=== PATIENT | female | born 1965 | race American Indian/Alaskan Native ===

== ENCOUNTER 2019-05-17 16:06 | Emergency (ER) | payer SELFPAY ==
--- NOTE | 2019-05-17 17:07 | Event Note ---
ED Screening Note ED Screening Note: left knee pain that began a week ago states she has associated pain and swelling states it got more uncomfortable today never injured before no fall or injury no pmhx no allergies to meds This initial assessment/diagnostic orders/clinical plan/treatment(s) is/are subject to change based on patients health status, clinical progression and re- assessment by fellow clinical providers in the ED. Further treatment and workup at subsequent clinical providers discretion. Patient/guardian urged not to elope from the ED as their condition may be serious if not clinically assessed and managed. Initial orders include: XR left knee
--- NOTE | 2019-05-17 17:41 | XRay Report ---
LEFT KNEE 3 VIEWS INDICATION: left knee pain/edema. COMPARISON: No relevant prior imaging study available. FINDINGS: No acute, displaced fracture or dislocation is seen. However, there is a joint effusion. IMPRESSION: 1. No acute skeletal abnormality. Joint effusion is present. Signer Name: Osito Brock MD Signed: 05/17/2019 5:36 PM Workstation Name: [id number]
[2019-05-17] MEDS ORDERED: predniSONE 20 MG TAB PO ONE (20:10)
[2019-05-17] MEDS ORDERED: ACETAMINOPHEN W/CODEINE 300-30 MG TAB PO ONE (20:10)
[2019-05-17] MEDS ORDERED: IBUPROFEN 800 MG TAB PO ONE (20:10)
--- NOTE | 2019-05-17 21:15 | Emergency Department Report ---
ED Lower Extremity HPI - General Chief Complaint: Extremity Injury, Lower Stated Complaint: LFT KNEE PAIN Time Seen by Provider: 05/17/19 17:06 Source: patient Mode of arrival: Wheelchair Limitations: Physical Limitation - History of Present Illness Initial Comments: this is a 54 y/o aaf wtih hx of htnn who presents for left knee pain and swelling 1 week , denies fall injury or trauma. pain described as 4/10 aching and swelling. pt remains ambulatory with minimal gait distrubance.. rom is intact , there is no numbness tingling or weakness Complaint: knee injury Onset/Timin -: week(s) Injury: Knee: Left Type of Injury: unknown Place: home Severity: moderate Severity scale (0 -10): 5 Improves With: nothing Worsens With: weight bearing, movement, palpation Associated Symptoms: swelling, ambulatory. denies: numbness, tingling - Related Data Previous Rx's Medication Instructions Recorded Last Taken Type Acetaminophen/Codeine [Tylenol 1 tab PO Q6H PRN #12 tab 05/17/19 Unknown Rx /Codeine # 3 tab] Naproxen 500 mg PO BID PRN #30 tablet 05/17/19 Unknown Rx amLODIPine 10 mg PO DAILY #30 tab 05/17/19 Unknown Rx hydroCHLOROthiazide [HCTZ] 25 mg PO QDAY #30 tablet 05/17/19 Unknown Rx predniSONE [Deltasone] 40 mg PO QDAY 5 Days #10 tab 05/17/19 Unknown Rx Allergies Allergy/AdvReac Type Severity Reaction Status Date / Time lisinopril Allergy Swelling Verified 05/17/19 20:29 ED Review of Systems ROS: Stated complaint: LFT KNEE PAIN Other details as noted in HPI Constitutional: denies: chills, fever Eyes: denies: eye pain, eye discharge, vision change ENT: denies: ear pain, throat pain Respiratory: denies: cough, shortness of breath, wheezing Cardiovascular: denies: chest pain, palpitations Endocrine: no symptoms reported Gastrointestinal: denies: abdominal pain, nausea, diarrhea Genitourinary: denies: urgency, dysuria, discharge Musculoskeletal: joint swelling, arthralgia Skin: denies: rash, lesions Neurological: as per HPI Psychiatric: denies: anxiety, depression Hematological/Lymphatic: denies: easy bleeding, easy bruising ED Past Medical Hx - Past Medical History Previous Medical History?: No - Social History Smoking Status: Current Every Day Smoker Substance Use Type: None - Medications Home Medications: Home Medications Medication Instructions Recorded Confirmed Last Taken Type Acetaminophen/Codeine [Tylenol 1 tab PO Q6H PRN #12 tab 05/17/19 Unknown Rx /Codeine # 3 tab] Naproxen 500 mg PO BID PRN #30 tablet 05/17/19 Unknown Rx amLODIPine 10 mg PO DAILY #30 tab 05/17/19 Unknown Rx hydroCHLOROthiazide [HCTZ] 25 mg PO QDAY #30 tablet 05/17/19 Unknown Rx predniSONE [Deltasone] 40 mg PO QDAY 5 Days #10 tab 05/17/19 Unknown Rx ED Physical Exam - General Limitations: Physical Limitation General appearance: alert, in no apparent distress - Head Head exam: Present: atraumatic, normocephalic - Eye Eye exam: Present: normal appearance - ENT ENT exam: Present: mucous membranes moist - Neck Neck exam: Present: normal inspection - Respiratory Respiratory exam: Present: normal lung sounds bilaterally. Absent: respiratory distress, wheezes, stridor - Cardiovascular Cardiovascular Exam: Present: regular rate, normal rhythm, normal heart sounds. Absent: systolic murmur, diastolic murmur, rubs, gallop - GI/Abdominal GI/Abdominal exam: Present: soft, normal bowel sounds. Absent: distended, tenderness, bruit, hernia - Rectal Rectal exam: Present: deferred - Extremities Exam Extremities exam: Present: full ROM, tenderness (left anterior knee ), normal capillary refill, joint swelling - Expanded Lower Extremity Exam Left Knee exam: Present: full ROM, tenderness, swelling, pain w/ pronation/supination, full knee extension. Absent: abrasion, laceration, ecchymosis, deformity, crepidus, dislocation, erythema, effusion, posterior draw sign Lower Leg exam: Present: full ROM. Absent: tenderness, swelling Ankle exam: Present: full ROM. Absent: tenderness, swelling Foot/Toe exam: Present: full ROM. Absent: tenderness, swelling Neuro vascular tendon exam: Absent: pulse deficit, motor deficit, sensory deficit, tendon deficit Gait: Positive: observed and normal - Back Exam Back exam: Present: normal inspection, full ROM. Absent: tenderness, CVA tenderness (R), CVA tenderness (L), muscle spasm, paraspinal tenderness, rash noted - Neurological Exam Neurological exam: Present: alert, oriented X3, CN II-XII intact, reflexes normal. Absent: motor sensory deficit - Psychiatric Psychiatric exam: Present: normal affect, normal mood - Skin Skin exam: Present: warm, dry, intact, normal color. Absent: rash ED Course Vital Signs 05/17/19 05/17/19 16:11 18:52 Temperature 98.4 F 98.2 F Pulse Rate 85 72 Respiratory 19 19 Rate Blood Pressure 173/102 177/96 O2 Sat by Pulse 97 98 Oximetry ED Lower Extremity MDM - Radiology Data Radiology results: report reviewed, image reviewed Findings [facility] [address] [place] [address] XRay Report Signed Patient: MIS CROW MR#: [id number] : 1965 Acct:[id number] Age/Sex: 54 / F ADM Date: 05/17/19 Loc: ED Attending Dr: Ordering Physician: LAURA CARTAGENA Date of Service: 05/17/19 Procedure(s): XR knee 3V LT Accession Number(s): [id number] cc: LAURA CARTAGENA Fluoro Time In Minutes: LEFT KNEE 3 VIEWS INDICATION: left knee pain/edema. COMPARISON: No relevant prior imaging study available. FINDINGS: No acute, displaced fracture or dislocation is seen. However, there is a joint effusion. IMPRESSION: 1. No acute skeletal abnormality. Joint effusion is present. Signer Name: Osito Brock MD Signed: 05/17/2019 5:36 PM Workstation Name: [id number] Transcribed By: Dictated By: Osito Brock MD Electronically Authenticated By: Osito Brock MD Signed Date/Time: 05/17/191735 DD/ 35 TD/TT: - Medical Decision Making left knee xray: no fracture, pos for right knee joint effusion, there is no drawer no catch no pop, joint is stable , pt is ambulatory, plan: nsaid, steroids, analgesic balm, follow up withe ortho dr Dickinson in 2-3 days. Critical care attestation.: If time is entered above; I have spent that time in minutes in the direct care of this critically ill patient, excluding procedure time. ED Disposition Clinical Impression: Strain of left knee Qualifiers: Encounter type: initial encounter Qualified Code(s): S86.912A - Strain of unspecified muscle(s) and tendon(s) at lower leg level, left leg, initial encounter Arthralgia Qualifiers: Joint pain location: knee Laterality: left Qualified Code(s): M25.562 - Pain in left knee Disposition: TO HOME OR SELFCARE Is pt being admited?: No Does the pt Need Aspirin: No Condition: Stable Instructions: Knee Pain (ED), Arthralgia (ED), Knee Exercises (GEN), RICE The rapy (ED) Prescriptions: amLODIPine 10 mg PO DAILY #30 tab predniSONE [Deltasone] 40 mg PO QDAY 5 Days #10 tab hydroCHLOROthiazide [HCTZ] 25 mg PO QDAY #30 tablet Naproxen 500 mg PO BID PRN #30 tablet PRN Reason: pain Acetaminophen/Codeine [Tylenol /Codeine # 3 tab] 1 tab PO Q6H PRN #12 tab PRN Reason: severe pain Referrals: YASMIN DICKINSON MD [Staff Physician] - 3-5 Days Forms: Work/School Release Form(ED) Time of Disposition: 21:12
[2019-05-17 21:37] VITALS: BP 188/105
== END 2019-05-17 21:32 | disposition home or self-care (01) ==
LOC: ED 16:06
DX: S86.912A Strain of unspecified muscle(s) and tendon(s) at lower leg level, left leg, initial encounter (principal); F17.200 Nicotine dependence, unspecified, uncomplicated; Z88.8 Allergy status to other drugs, medicaments and biological substances; X58.XXXA Exposure to other specified factors, initial encounter; Y93.89 Activity, other specified; Y92.89 Other specified places as the place of occurrence of the external cause; Y99.8 Other external cause status
CPT/HCPCS: 73562; J7512